=== PATIENT | female | born 1940 | race Caucasian/White ===

== ENCOUNTER 2019-02-25 16:17 | Outpatient (CLI) ==
--- NOTE | 2019-02-25 16:55 | DI ---
EXAM: Four views of the right knee. History: Right knee pain. Findings: No acute fracture or dislocation. Atherosclerotic vascular calcifications. Mild to moder ate tricompartmental joint space narrowing with tiny osteophytes. No radiopaque foreign bodies. Impression: 1. No acute osseous abnormality. 2. Mild to moderate osteoarthritis. 3. Atherosclerotic vascular disease
--- NOTE | 2019-02-25 16:56 | DI ---
EXAM: Two views of the chest. History: Chest pain. Findings: Heart size is upper limits of normal. Bronchial wall thickening but no consolidated pneum onia. No pleural fluid and no pneumothorax. No acute osseous abnormalities. Nodularity seen within the right infrahilar region. Impression: 1. Bronchial wall thickening but no consolidated pneumonia. 2. Nodularity seen within the right infrahilar region. Recommend correlation with contrast enhanced chest CT.
== END 2019-02-25 16:18 | disposition home or self-care (01) ==
LOC: CAR 16:17
PROVIDERS: ATTEND General Practice
DX: M25.561 Pain in right knee (principal); R26.9 Unspecified abnormalities of gait and mobility; R30.0 Dysuria; I65.22 Occlusion and stenosis of left carotid artery; I49.9 Cardiac arrhythmia, unspecified; Z72.0 Tobacco use; Z91.81 History of falling
CPT/HCPCS: 93005; 93010

== ENCOUNTER 2019-03-04 06:41 | Outpatient (CLI) ==
--- NOTE | 2019-03-04 13:08 | US ---
EXAM: ULTRASOUND CAROTID DUPLEX, BILATERAL HISTORY: Atherosclerotic disease, falls, dizziness FINDINGS: Bliss-scale ultrasound, color Doppler and spectral analysis was performed. Velocities are in meters per second. By bliss scale and color Doppler imaging, there were multiple heterogeneous plaque depositions bilater ally some which appeared to be at least 50% vessel diameter if not greater especially on the left. RIGHT: External carotid artery peak systolic velocity: 0.92/0.09 Common carotid artery peak systolic velocity/end diastolic velocity: 0.93/0.22 Internal carotid artery peak systolic velocity: 0.76 ICA/CCA peak systolic velocity ratio: 0.8 ICA end diastolic velocity: 0.20 no LEFT: External carotid artery peak systolic velocity: 1.22/0.13 Common carotid artery peak systolic velocity/end diastolic velocity: 0.69/0.07 Internal carotid artery peak systolic velocity: 0.62 ICA/CCA peak systolic velocity ratio: 0.9 ICA end diastolic velocity: 0.07 The right and left vertebral arteries were antegrade. IMPRESSION: 1. By bliss scale and color Doppler imaging, there were multiple heterogeneous plaque depositions angela aterally some which appeared to be at least 50% vessel diameter if not greater especially on the left . 2. Internal carotid artery peak systolic velocities and ICA/CCA peak systolic velocity ratios indica te no hemodynamically significant stenosis bilaterally. The velocities and bliss scale/color Doppler imaging findings do not correlate. Follow-up CTA neck may be beneficial. 3. Both vertebral arteries were antegrade.
--- NOTE | 2019-03-04 15:32 | CT ---
EXAM: CT chest with contrast HISTORY: Solitary pulmonary nodule COMPARISON: Radiograph 02/25/2019 TECHNIQUE: CT chest performed with intravenous contrast. Coronal and sagittal reformatted images ob tained. FINDINGS: Thyroid and thoracic inlet appear normal. Heart normal in size. Coronary calcifications. No pericardial effusion. Aorta normal in caliber. Moderate atherosclerosis. Esophagus unremarka ble. No lymphadenopathy identified in the chest. Calcified mediastinal calcified right hilar lymph nodes, consistent with old granulomatous disease. Visualized portion upper abdomen demonstrates no a cute abnormality. Granulomas calcification spleen. No acute abnormalities of the bones. Degenerati ve change in the spine. Central airway patent. Mild bibasilar atelectasis. No airspace consolidati on. No pleural effusion. No pneumothorax. Granulomas calcification. Right infrahilar granulomatou s calcification likely corresponds with finding on chest radiograph. No noncalcified pulmonary nodul es. IMPRESSION: 1. No noncalcified pulmonary nodules. 2. Findings of old granulomatous disease. Right infrahilar granulomatous calcification likely corre sponds with the finding on chest radiograph. 3. Mild bibasilar atelectasis. No airspace consolidation. 4. Coronary calcifications. Atherosclerosis.
--- NOTE | 2019-03-05 13:31 | ECHO2D ---
Date of Exam: 03/04/19 Ordering Physician: DR. ALBERT BERRY Room # : OP Reason for Echo: CARDIAC ARRHYTHMIA, HTN, DM2, CAROTID OCCLUSION M-Mode Normal Adult Results LV Dimensions Normal Adult Results AoV Opening excursions >1.6 >1.6 LVEDD-base- 3.5-5.8 4.8 Ao root dimensions 2.0-3.7 2.9 LVESD-base- 3.1-4.6 L. Atrium dimensions 1.9-3.8 4.0 Post. Wall thickness 0.8-1.1 1.2 IV septum (thickness) 0.7-1.2 1.2 Post. Wall excursion 0.72-1.3 NORMAL Septal motion NORMAL Systolic motion R. Ventricular cavity 1.5-2.0 NORMAL LVEF 60% 70% Paradoxical septal wall motion NORMAL 2-D : 2-D M Mode Echocardiogram was performed using apical four chamber and left parasternal long and short axis views. Mitral Valve Prolapse noted. Tricuspid and aortic valves appear to be normal. Contractility of the left ventricle seems to be normal, so is the cavity size. Left atrial cavity size and aortic root appear to be normal. There is no pericardial effusion. There is no thrombus noted in the left ventricular or left aortic cavity. M-MODE: MV: MITRAL VALVE PROLAPSE LATE SYSTOLIC AV: NORMAL TV: NORMAL PV: NORMAL CHAMBER SIZE: NORMAL WALL MOTION: NORMAL PERICARDIUM: NORMAL INTERPRETATION: 1. LEFT VENTRICULAR HYPERTROPHY BORDERLINE WITH BORDERLINE LEFT ATRIAL CAVITY 2. LATE SYSTOLIC MITRAL VALVE PROLAPSE 3. NORMAL LEFT VENTRICULAR CONTRACTILITY MTDD
== END 2019-03-04 06:42 | disposition home or self-care (01) ==
LOC: CAR 06:41
PROVIDERS: ATTEND General Practice
DX: I65.22 Occlusion and stenosis of left carotid artery (principal); I10 Essential (primary) hypertension; F32.9 Major depressive disorder, single episode, unspecified; E11.9 Type 2 diabetes mellitus without complications; M25.561 Pain in right knee; Z79.899 Other long term (current) drug therapy; I49.9 Cardiac arrhythmia, unspecified; R06.02 Shortness of breath; R60.9 Edema, unspecified; R91.1 Solitary pulmonary nodule; R93.89 Abnormal findings on diagnostic imaging of other specified body structures; R26.9 Unspecified abnormalities of gait and mobility; Z72.0 Tobacco use; Z91.81 History of falling
CPT/HCPCS: 36415; 80053; 80061; 81001; 82565; 83036; 84443; 85025; 87086

== ENCOUNTER 2019-05-11 11:12 | Emergency (ER) ==
[2019-05-11 11:22] VITALS: BP 186/102; TEMP 97.8; BMI 26.6
[2019-05-11] MEDS ORDERED: SODIUM CHLORIDE 1,000 ML IV STA (11:40)
[2019-05-11] MEDS ORDERED: ZOFRAN 4 MG/2 ML IVP STA (11:40)
--- NOTE | 2019-05-11 12:47 | CT ---
EXAM: CT scan of the head without contrast HISTORY: Headache TECHNIQUE: Helical imaging of the head was performed without contrast. 5 mm thin axial images and c oronal and sagittal reconstructions were provided for interpretation. Comparison none. FINDINGS: The lateral ventricles and cortical sulci are prominent from atrophy. No acute hemorrhage s are seen. There is no mass effect. The basal cisterns are patent. Prominent extraaxial spaces ar e seen overlying the left and right frontal lobes. There is low density change seen within the left frontal lobe. IMPRESSION: No evidence of acute hemorrhage or hydrocephalus or mass effect. Mild cerebral atrophy. 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
--- NOTE | 2019-05-11 12:51 | CT ---
EXAM: CT Abdomen Pelvis Without contrast HISTORY: Mildly COMPARISON: None TECHNIQUE: CT Abdomen Pelvis performed Without intravenous contrast. Coronal and sagital images obta ined. FINDINGS: Minimal passive atelectasis in the dependent lung bases. Normal heart size. The liver, pancreas, spleen, and right adrenal are unremarkable. Atrophy of the left kidney . Mild bilateral perinephric fat stranding, greater on the right. No hydronephrosis, urolithiasis. Hypoden se thickening of the left adrenal gland measuring up to 1.6 cm and 8 HU, consistent with adrenal tiburcio alfredo. Distended gallbladder measuring approximately 4.8 cm in diameter. No bowel obstruction or abnormal bowel wall thickening. Diverticulosis without diverticulitis no arvind dence of appendicitis. Appendix is not definitely visualized. No adenopathy. The uterus and adnexa a re within normal limits. Normal diameter aorta. Moderate/severe atherosclerotic calcifications. No abnormal fluid collection , free fluid or free air. No acute osseous abnormality. degenerative change of the thoracolumbar sp ine. IMPRESSION: 1. No bowel obstruction or acute intra-abdominal finding. 2. Distended gallbladder without visualized cholelithiasis. If the patient has right upper quadrant pain recommend dedicated ultrasound for further evaluation. 3. Benign left adrenal adenoma. 4. Diverticulosis. 5. Moderate/severe atherosclerosis.
--- NOTE | 2019-05-11 12:54 | CT ---
EXAM: CT scan of the left ankle without contrast HISTORY: injury TECHNIQUE: Helical imaging of the left ankle was performed without contrast. Axial images and coron al and sagittal reconstructions were provided for interpretation. FINDINGS: The distal tibia and fibula appear intact. There is a normal appearance of the talus and calcaneus. No acute fractures are seen. No lytic changes are seen. The soft tissues appear within normal limits. There is arthritis and subchondral cystic change seen within the navicular bone as we ll as within the cuneiform bones. There is additional subchondral cystic change seen within the dist al talus at the articulation with the navicular bone. IMPRESSION: No acute fracture dislocation seen within the left ankle. Arthritis of the midfoot.
--- NOTE | 2019-05-11 12:57 | CT ---
EXAM: Noncontrast CT of the left foot. HISTORY: Pain and injury. COMPARISON: None. TECHNIQUE: Noncontrast CT of the left foot. FINDINGS: Alignment: Anatomic. Bones: Generalized osteopenia. No acute fracture. No aggressive osseous lesion. Joint spaces: Multifocal midfoot arthrosis, moderate at the talonavicular joint. Mild first MP joint arthrosis. Soft tissues: No acute abnormality. Nonspecific mild subcutaneous edema about the ankle/hind foot an d dorsal forefoot. IMPRESSION: 1. No fracture. 2. Mild subcutaneous edema and swelling about the dorsal forefoot.
--- NOTE | 2019-05-11 13:07 | ED.PDOC ---
General ED Provider: Dr. FERNANDO MATTHEWS-ER Chief Complaint: Nausea/Vomiting Stated Complaint: multiple complaints of headache, nausea, vomiting Time Seen by Physician: 13:06 Mode of Arrival: Wheelchair Information Source: Patient Exam Limitations: No limitations [facility] and Triage Documentation Reviewed and Agree: Yes Does patient meet sepsis criteria?: No System Inflammatory Response Syndrome: Not Applicable Sepsis Protocol: For patient's 13 years and over: Temp is 96.8 and below OR 101 and greater Pulse >90 BPM Resp >20/minute Acutely Altered Mental Status Are patient's symptoms suggestive of a new infection, such as: -Pneumonia -Skin, Soft Tissue -Endocarditis -UTI -Bone, Joint Infection -Implantable Device -Acute Abdominal Infection -Wound Infection -Meningitis -Blood Stream Catheter Infection -Unknown Miscellaneous Complaint Exam - Complex/Multi-System Complaint/Exam Onset/Duration: one week Symptoms Are: Still present Initial Severity: Mild Current Severity: Mild Location of Pain: left retroorbital Associated Signs and Symptoms: Reports: Headache, Nausea, Vomiting, Abdominal pain. Denies: Decreased responsiveness, Confusion, Agitation, Dizziness, Weakness, Syncope, Short of air, Cough, Wheezing, Hemoptysis, Chest pain, Palpitations, Edema Review of Systems - Review Of Systems Constitutional: Reports: No symptoms Eyes: Reports: No symptoms Ears, Nose, Mouth, Throat: Reports: No symptoms Respiratory: Reports: No symptoms Cardiac: Reports: No symptoms GI: Reports: Abdominal pain, Nausea, Vomiting : Reports: No symptoms Musculoskeletal: Reports: No symptoms Skin: Reports: No symptoms Neurological: Reports: No symptoms Endocrine: Reports: No symptoms Hematologic/Lymphatic: Reports: No symptoms All Other Systems: Reviewed and Negative Past Medical History - Past Medical History Previously Healthy: No Endocrine: Reports: Unknown Cardiovascular: Reports: Unknown Respiratory: Reports: Unknown Hematological: Reports: Unknown Gastrointestinal: Reports: Unknown Genitourinary: Reports: Unknown Neuro/Psych: Reports: Unknown Musculoskeletal: Reports: Unknown Cancer: Reports: Unknown Last Menstrual Period: no - Surgical History General Surgical History: Reports: Unknown - Family History Family History: Reports: Unknown - Social History Smoking Status: Current every day smoker Hx Substance Use: No Alcohol Screening: None - Immunizations Tetanus Shot up to Date: No Physical Exam - Physical Exam Appearance: Well-appearing, No pain distress, Well-nourished Pain Distress: Mild Eyes: SAM, EOMI, Conjunctiva clear ENT: Ears normal, Nose normal, Oropharynx normal Neck: Supple Respiratory: Airway patent, Breath sounds clear, Breath sounds equal, Respirations nonlabored Cardiovascular: RRR, Pulses normal, No rub, No murmur GI/: Soft, Nontender, No masses, Bowel sounds normal, No Organomegaly Musculoskeletal: Normal strength, ROM intact, No edema, No calf tenderness Skin: Warm, Dry, Normal color Neurological: Sensation intact, Motor intact, Reflexes intact, Cranial nerves intact, Alert, Oriented Psychiatric: Affect appropriate, Mood appropriate Interpretation - Radiology Interpretation Radiology Interpretation By: Radiologist Radiology Results: Negative Exam Interpreted: CT Scan - EKG Interpretation Time of EKG #1: 13:09 Rate: Normal Rhythm: Sinus Ectopy: None [place]: NL ST Segment: Normal Interpretation: nsr Physician Notification - Case Discussed Physician Notified: dr peacock([facility]) Time of Notification: 13:10 Critical Care Note - Critical Care Note Total Time (mins): 30 Course - Course Hematology/Chemistry: 05/11/19 11:45 05/11/19 11:45 Orders, Labs, Meds: Lab Review 05/11/19 05/11/19 11:45 11:45 WBC 10.21 H RBC 5.23 Hgb 15.9 Hct 46.1 MCV 88.1 MCH 30.4 MCHC 34.5 RDW Coeff of Harshal 13.7 Plt Count 240 Immature Gran % (Auto) 0.3 Neut % (Auto) 73.9 Lymph % (Auto) 18.7 [place] % (Auto) 6.3 Eos % (Auto) 0.5 Baso % (Auto) 0.3 Immature Gran # (Auto) 0.0 Neut # (Auto) 7.6 H Lymph # (Auto) 1.9 [place] # (Auto) 0.6 Eos # (Auto) 0.1 Baso # (Auto) 0.0 Sodium 139.1 Potassium 3.91 Chloride 102.6 Carbon Dioxide 28.6 Anion Gap 11.81 BUN 15.6 Creatinine 0.73 Estimated GFR (MDRD) 78.00 BUN/Creatinine Ratio 21.36 Glucose 160.2 H Calcium 9.51 Total Bilirubin 1.01 AST 38.8 H ALT 19.7 Alkaline Phosphatase 127.3 Total Creatine Kinase 32.6 Troponin I 0.141 H Total Protein 7.85 Albumin 4.60 Globulin 3.25 Albumin/Globulin Ratio 1.41 Amylase 68.8 Lipase 130.8 Orders Category Date Time Status EKG-(ED ONLY) Stat CARDIO 05/11/19 11:39 Completed Bladder Scan [ED BLADDER SCAN] .ONCE EMERGENCY 05/11/19 12:07 Active ED IT SUPPORT CONSULTANT APPLIED .ONCE EMERGENCY 05/11/19 11:39 Active ED IV/MEDIPORT/POWERPORT .ONCE EMERGENCY 05/11/19 11:39 Active AMYLASE Stat LAB 05/11/19 11:45 Completed CBC W/ AUTO DIFF Stat LAB 05/11/19 11:45 Completed COMPREHENSIVE METABOLIC PANEL Stat LAB 05/11/19 11:45 Completed CREATINE KINASE Stat LAB 05/11/19 11:45 Completed ESR Stat LAB 05/11/19 12:35 Ordered LIPASE Stat LAB 05/11/19 11:45 Completed TROPONIN I Stat LAB 05/11/19 11:45 Completed URINALYSIS C & S IF INDICATED Stat LAB 05/11/19 11:39 Uncollected 0.9 % Sodium Chloride [Saline Flush] MEDS 05/11/19 11:39 Active 1 syr IVF PRN PRN Ondansetron HCl/Pf [Zofran 4 mg/2 ml] MEDS 05/11/19 11:40 Discontinued 4 mg IVP ONCE STA Sodium Chloride 0.9% [Sodium Chloride] 1,000 ml MEDS 05/11/19 11:[address] ABDOMEN/PELVIS WO CONTRAST Stat RADS 05/11/19 11:[address] ANKLE LEFT WITHOUT CONTRAST Stat RADS 05/11/19 11:[address] FOOT LEFT WITHOUT CONTRAST Stat RADS 05/11/19 11:[address] HEAD W/O CONTRAST Stat RADS 05/11/19 11:40 Completed Medications Generic Name Dose Route Start Last Admin Trade Name Freq PRN Reason Stop Dose Admin Sodium Chloride 1 syr 05/11/19 11:39 05/11/19 12:08 Saline Flush IVF 1 syr PRN PRN Administration To flush IV Discontinued Medications Generic Name Dose Route Start Last Admin Trade Name Freq PRN Reason Stop Dose Admin Sodium Chloride 1,000 mls @ 1,000 mls/hr 05/11/19 11:40 05/11/19 12:08 Sodium Chloride IV 05/11/19 12:39 1,000 mls/hr BOLUS STA Administration Ondansetron HCl 4 mg 05/11/19 11:40 05/11/19 12:08 Zofran 4 Mg/2 Ml IVP 05/11/19 11:41 4 mg ONCE STA Administration Vital Signs: Temp Pulse Resp BP Pulse Ox 05/11/19 11:13 97.8 F 73 16 186/102 H 95 Departure - Departure Time of Disposition: 13:10 Disposition: TSF SHORT-TRM HOSP Discharge Problem: Elevated troponin Headache Qualifiers: Headache type: unspecified Headache chronicity pattern: acute headache Intractability: not intractable Qualified Code(s): R51 - Headache Instructions: Acute Headache (ED) Condition: Good Pt referred to PMD for follow-up: Yes IPMP verified?: No Allergies/Adverse Reactions: Allergies gentamicin Allergy (Unknown, Verified 05/11/19 11:32) nitrofurantoin [From Macrobid] Allergy (Unknown, Verified 05/11/19 11:32) nitrofurantoin macrocrystal [From Macrobid] Allergy (Unknown, Verified 05/11/19 11:32) Penicillins Allergy (Unknown, Verified 05/11/19 11:32) Sulfa (Sulfonamide Antibiotics) Allergy (Unknown, Verified 05/11/19 11:32) menthol [From N'Ice] Allergy (Verified 05/11/19 11:32) sorbitol [From N'Ice] Allergy (Verified 05/11/19 11:32) Home Medications: Ambulatory Orders Bimatoprost 2.5 ml OP BEDTIME 02/25/19 Brimonidine Tartrate [Alphagan P] 5 ml OP TID 02/25/19 Dorzolamide HCl/Pf [Dorzolamide 2% Eye Drop] 10 ml OP BID 02/25/19 Folic Acid/Multivit-Min/Lutein [Centrum Silver Chewable Tablet] 1 each PO DAILY 02/25/19 Vit C/E/Zn/Coppr/Lutein/Zeaxan [Preservision Areds 2 Softgel] 1 each PO BID Transfer Form Completed: Yes Disposition Discussed With: Patient, Family
== END 2019-05-11 14:33 | disposition short-term general hospital (02) ==
LOC: ED 11:12
DX: R51 Headache (principal); R79.89 Other specified abnormal findings of blood chemistry; R11.2 Nausea with vomiting, unspecified; R10.9 Unspecified abdominal pain; Z79.899 Other long term (current) drug therapy; F17.210 Nicotine dependence, cigarettes, uncomplicated
CPT/HCPCS: 36415; 51798; 80053; 81001; 82150; 82550; 83690; 84484; 85025; 85651; 93005; 93010; 96361; 96374; 99285

== ENCOUNTER 2019-05-11 14:41 | Outpatient (CLI) | payer OTHER ==
[2019-05-11 11:22] VITALS: BMI 26.6
== END 2019-05-11 15:00 | disposition short-term general hospital (02) ==
LOC: AMBL 14:41
PROVIDERS: ATTEND Family Medicine
DX: R11.2 Nausea with vomiting, unspecified (principal); R51 Headache; R53.1 Weakness